=== PATIENT | male | born 2000 | race Caucasian/White ===

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

== ENCOUNTER → 2021-11-11 | Outpatient (CLI) | payer OTHER ==
[~2021-11-11] MED LIST: HYDR-3165 PO
--- NOTE | 2021-11-11 17:27 | RAD ---
XR LUMBAR SPINE 4+V, XR SACRUM AND COCCYX 2+VIEWS History: Reason: LUMBAR PAIN / Spl. Instructions: / History: Technique: 5 views of the lumbar spine. 3 views of the sacrum and coccyx. Comparison: None. Findings: Lumbar spine: Normal vertebral body height and alignment. No acute fracture. Disc spaces are well-kendy ntained. Coccyx and sacrum: Symmetric appearance of the sacroiliac joints. No acute fracture. Slight posterior angulation of the coccyx. Impression: 1. Slight posterior angulation of the coccyx, likely within normal limits. Correlate for jolene banda to evaluate acuity. Electronically signed by: Arthur Wilburn DO (11/11/2021 5:24 PM) [id number]
== END ==
LOC: RAD 15:42
PROVIDERS: ATTEND Physician Assistant Medical
DX: M43.8X8 Other specified deforming dorsopathies, sacral and sacrococcygeal region (principal)
CPT/HCPCS: 72110; 72220